=== PATIENT | female | born 1960 | race Caucasian/White ===

== ENCOUNTER 2019-02-19 13:51 | Day surgery (SDC) | payer OTHER, SELFPAY ==
[2019-02-16 09:12] VITALS: BMI 52.5
--- NOTE | 2019-02-16 09:23 | ANES.PREANES ---
Pre-Anesthetic Assessment Pre-Anesthetic Assessment: Height/Weight: Height 1.35 m Weight 95.254 kg Preop Diagnosis: L thigh mass Proposed Procedure: Operation Date: 02/19/19 15:25 Proposed Procedures p Excision Mass/Lesion/Cyst Lower Extremit/left thigh mass [id number] K21.9,Z12.11,D17.9(Left) - Zelalem Kebede MD s Colonoscopy(Not Applicable) - Zelalem Kebede MD s EGD(Not Applicable) - Zelalem Kebede MD Familial anesthetic complications: None Was Beta Tameka taken within 24 hours: N/A Social: Social History: No alcohol and No tobacco Exam: Pre-Anes Outpt Exam: alert, oriented x 3, clear to auscultation bilaterally and regular rate & rhythm Airway: Cervical ROM: WNL MP: 2 Dentition: Chipped Pulmonary: Pulmonary: None reported CV/HEM: CV/HEM: None reported : : None reported Hepatic: Hepatic: None reported GI: GI: None reported Metabolic: Metabolic: Thyroid Musc/skel: Musc/skel: Lower Back Pain Neuropsych: Neuropsych: None reported Anesthetic Plan: ASA status: II Anesthesia: MAC Risk of > 500 ml blood loss (7ml/kg in children): No PFSH Anesthesia PFSH: Family History (Updated 02/08/19 @ 11:18 by Lydia Lorenzana RN) Sister Cancer breast Brother CAD (coronary artery disease) Hypertension Hyperlipidemia Stroke Social History Smoking and tobacco status: never smoked Second hand smoke exposure: No Alcohol intake: never Adopted: No Caregiver/support person: Yes Lives independently: Yes Household members: spouse Housing: House Marital status: Number of children: 3 Number of grandchildren: 3 Highest education level completed: High School Graduate service: No Current occupational status: employed Current occupational exposures/hazards: No Pets and animals: Yes History of recent travel: Yes Leisure activites: sports Sexually active: Yes Current gender identity: Female Carole/Adventist: Gnosticism Special carole needs: No Agree to transfusion: No Financial difficulty paying for basics: Not Very Hard Female Reproductive History: Para: 3 Spontaneous abortions: No Data Anesthesia Cardiac Studies: No Data to Display
--- NOTE | 2019-02-16 09:29 | P.PN_ITS ---
Pre-Anesthetic Assessment Pre-Anesthetic Assessment: Height/Weight: Height 1.35 m Weight 95.254 kg Proposed Procedure: Operation Date: 02/19/19 15:25 Proposed Procedures p Excision Mass/Lesion/Cyst Lower Extremit/left thigh mass [id number] K21.9,Z12.11,D17.9(Left) - Zelalem Kebede MD s Colonoscopy(Not Applicable) - MD jame Negron EGD(Not Applicable) - Zelalem Kebede MD Social: Social History: Tobacco (former smoker) Pulmonary: Comments: hx bronchitis Neuropsych: Comments: brain tumor PFSH Anesthesia PFSH: Family History (Updated 02/08/19 @ 11:18 by Lydia Lorenzana RN) Sister Cancer breast Brother CAD (coronary artery disease) Hypertension Hyperlipidemia Stroke Social History Smoking and tobacco status: never smoked Second hand smoke exposure: No Alcohol intake: never Adopted: No Caregiver/support person: Yes Lives independently: Yes Household members: spouse Housing: House Marital status: Number of children: 3 Number of grandchildren: 3 Highest education level completed: High School Graduate service: No Current occupational status: employed Current occupational exposures/hazards: No Pets and animals: Yes History of recent travel: Yes Leisure activites: sports Sexually active: Yes Current gender identity: Female Carole/Mandaeism: Rastafari Special carole needs: No Agree to transfusion: No Financial difficulty paying for basics: Not Very Hard Female Reproductive History: Para: 3 Spontaneous abortions: No Data Anesthesia Cardiac Studies: No Data to Display
[2019-02-19 14:17] VITALS: BP 152/92; PULSE 83; RESP 18; TEMP 36.6; O2SAT 97
--- NOTE | 2019-02-19 14:39 | P.ANES_ITS ---
Pre-Anesthetic Assessment Pre-Anesthetic Assessment: Height/Weight: Height 1.35 m Weight 95.254 kg Temp Pulse Resp BP Pulse Ox 97.8 F 83 18 152/92 97 02/19/19 14:17 02/19/19 14:17 02/19/19 14:17 02/19/19 14:17 02/19/19 14:17 Preop Diagnosis: L thigh mass Proposed Procedure: Operation Date: 02/19/19 15:35 Proposed Procedures p Excision Mass/Lesion/Cyst Lower Extremit/left thigh mass [id number] K21.9,Z12.11,D17.9(Left) - Zelalem Kebede MD Last intake: Intake Last Liquid Date 02/19/19 Last Liquid Time 09:30 Last Solid Date 02/18/19 Last Solid Time 19:00 Exam: Pre-Anes Outpt Exam: alert and oriented x 3 Airway: Dentition: Chipped Metabolic: Metabolic: Thyroid Comments: replacement x 10 year Anesthetic Plan: ASA status: II Anesthesia: MAC PFSH Anesthesia PFSH: Family History (Updated 02/08/19 @ 11:18 by Lydia Lorenzana RN) Sister Cancer breast Brother CAD (coronary artery disease) Hypertension Hyperlipidemia Stroke Social History Smoking and tobacco status: never smoked Second hand smoke exposure: No Alcohol intake: never Adopted: No Caregiver/support person: Yes Lives independently: Yes Household members: spouse Housing: House Marital status: Number of children: 3 Number of grandchildren: 3 Highest education level completed: High School Graduate service: No Current occupational status: employed Current occupational exposures/hazards: No Pets and animals: Yes History of recent travel: Yes Leisure activites: sports Sexually active: Yes Current gender identity: Female Carole/Gnosticism: Pentecostal Special carole needs: No Agree to transfusion: No Financial difficulty paying for basics: Not Very Hard Female Reproductive History: Para: 3 Spontaneous abortions: No Data Anesthesia Cardiac Studies: No Data to Display
[2019-02-19] MEDS: sodium chloride 0.9% 1,000 ML 30 ML IV (14:49)
--- NOTE | 2019-02-19 15:17 | P.HPUD_ITS ---
H&P update H&P Update: DATE OF SURGERY/PROCEDURE: 02/19/19 DATE H&P PERFORMED: 03/29 H&P UPDATE INFORMATION: H&P completed within last 30 days and No changes to prior documentation PREOP DIAGNOSIS: Left thigh mass PLANNED PROCEDURE: Operation Date: 02/19/19 15:35 Proposed Procedures p Excision Mass/Lesion/Cyst Lower Extremit/left thigh mass [id number] K21.9,Z12.11,D17.9(Left) - Zelalem Kebede MD Full H&P Medications/Allergies: Current Medications: Current Medications Generic Name Dose Route Start Last Admin Trade Name Freq PRN Reason Stop Dose Admin Sodium Chloride 1,000 mls @ 30 ml s/hr 02/19/19 14:30 02/19/19 14:49 Sodium Chloride 0.9% IV 02/20/19 14:29 30 mls/hr .Q24H VIDAL Administration Perinent History: Family History: Family History (Updated 02/08/19 @ 11:18 by Lydia Lorenzana RN) Sister Cancer breast Brother CAD (coronary artery disease) Hypertension Hyperlipidemia Stroke Social History: Social History Smoking and tobacco status: never smoked Second hand smoke exposure: No Alcohol intake: never Adopted: No Caregiver/support person: Yes Lives independently: Yes Household members: spouse Housing: House Marital status: Number of children: 3 Number of grandchildren: 3 Highest education level completed: High School Graduate service: No Current occupational status: employed Current occupational exposures/hazards: No Pets and animals: Yes History of recent travel: Yes Leisure activites: sports Sexually active: Yes Current gender identity: Female Carole/Cheondoism: Moravian Special carole needs: No Agree to transfusion: No Financial difficulty paying for basics: Not Very Hard
[2019-02-19] MEDS: lidocaine 2% INJ 20 mL INJECTION (17:18)
--- NOTE | 2019-02-19 17:27 | PM.OP ---
Operative Report Date of procedure: 02/20/19 Preop Diagnosis: Left thigh mass Post-op diagnosis: other (Left thigh lipoma) Post-op Findings: Multilobulated left thigh lipoma is about 4 x 5 cm Procedure Done: Excision of left thigh lipoma Specimens removed/disposition: Left thigh lobulated lipoma Surgeon: Zelalem Kebede Anesthesia: MAC (OBSTETRICIAN/GYNECOLOGIST David) Estimated blood loss (mL): 5 Complications: No immediate complication Findings: Left thigh lipoma Condition: stable Disposition: same day Brief History: This is a pleasant 58 years old female patient with history of left thigh mass for few year, has been getting bigger and becoming more painful, after thorough history physical examination and reviewing the chart as patient was seen in my office as a referral, I counseled her for excision of such a mass. Informed consent per chart Procedure: Procedure: After identifying the patient holding area, the left thigh was marked before the procedure by myself in the presence of female major account representative THA Salgado, patient was then taken to the operative suite, was placed in supine position, IV propofol was infused by the anesthesia, prophylactic IV antibiotics were given per protocol, left arm was tucked to her body, prep and drape of the left thigh region was done under the usual sterile technique as well as left upper arm and armpit. Time-out was done verifying the patient's name/date of /planned procedure and destination after the procedure, all were in agreement. After palpation of the left thigh mass, I did add elliptical transverse incision on top of the judith corresponding to the skin crease increase, I was able to dissect using a tenotomy scissors and a good margin of normal subcutaneous tissues surrounding lipoma-like structure 4 x 5 cm lobulated and the specimen was then passed to the circulating nurse. Thorough irrigation of the cavity was done and hemostasis, followed by deep dermal closure by 3-0 Vicryl, then 4-0 Monocryl for skin closure Lidocaine 2% was injected at the site of the incision that prior to the injection aspiration was done to make sure no injection is going into any vessel, surgical glue was applied followed by dry dressing in the form of Tegaderm.Followed by Jadiel wrap Patient tolerated the procedure well, count of instruments, needles and sponges were completed at the end of the procedure.And then patient was taken to the recovery area in stable condition. I Was present for the whole entire procedure.
--- NOTE | 2019-02-19 17:36 | ANE.PACU ---
 Inpatient post-anesthesia follow up: Airway intact: Yes Vital signs: Temperature 97.8 F Pulse Rate [Monito r] 83 Respiratory Rate 18 Blood Pressure [Le ft Arm] 152/92 Pulse Oximetry 97 Oxygen Delivery Me thod Room Air Oxygen Flow Rate Fraction of Inspir ed Oxygen Hydration adequate: Yes Nausea and vomiting: No Pain level: 1 Mental status: Baseline
[2019-02-19 17:45] VITALS: BP 143/92; PULSE 73; RESP 18; O2SAT 99
[2019-02-19 18:42] VITALS: BP 118/79; PULSE 83; RESP 18; TEMP 36.1; O2SAT 95
== END 2019-02-19 18:48 | disposition home or self-care (01) ==
PROVIDERS: Family Provider Nurse Practitioner; PCP Nurse Practitioner; Visit Provider Surgery
PROC: (CPT 11606; principal; 2019-02-19 15:25)
DX: D17.24 Benign lipomatous neoplasm of skin and subcutaneous tissue of left leg (principal); Z87.891 Personal history of nicotine dependence; Z82.49 Family history of ischemic heart disease and other diseases of the circulatory system
CPT/HCPCS: 11606; 12032; 12345; 88307; 96365; J0690; J2001; J2704; J3010; J7030

== ENCOUNTER → 2019-03-15 09:29 | Outpatient (BNVA) | payer OTHER, SELFPAY | PROVIDERS: Family Provider Nurse Practitioner; PCP Nurse Practitioner; Visit Provider Nurse Practitioner Family | DX: E03.9 Hypothyroidism, unspecified (principal); D17.24 Benign lipomatous neoplasm of skin and subcutaneous tissue of left leg | CPT/HCPCS: 80053; 84443; 85025 ==